=== PATIENT | male | born 1955 | race Caucasian/White ===

== ENCOUNTER → 2018-01-23 08:14 | Outpatient (CLI) | payer OTHER, MEDICAID, SELFPAY ==
[2018-01-23 09:30] LABS: Aspartate Aminotransferase 32 IU/L (17-59); Cholesterol 143 mg/dL (140-199); Glucose 101 mg/dL (80-110); HDL Cholesterol 58 mg/dL (40-60); LDL Cholesterol Calculated 71 mg/dL (<100); Triglycerides 71 mg/dL (35-150)
== END ==
PROVIDERS: PCP Internal Medicine; Visit Provider Internal Medicine
DX: E78.00 Pure hypercholesterolemia, unspecified (principal); R97.20 Elevated prostate specific antigen [PSA]
CPT/HCPCS: 36415; 80061; 82947; 84153; 84450

== ENCOUNTER → 2018-03-06 13:39 | Outpatient (CLI) | payer OTHER, MEDICAID, SELFPAY ==
--- NOTE | 2018-03-06 | DI.ECHO.S_ITS ---
[facility] +---------+ : : [address] : [place] : : : : [id number] : : : : Phone: [phone]+ Echocardiogram Report + + :Name: JASON ROMERO Study Date: 03/06/2018 Height: 71 in : :[facility] Weight: 180 lb : : Gender: Male BSA: 2.0 m2 : :: 1955 Age: 63 yrs BP: 108/66 mmHg: :Reason For Study: Murmur : : Performed By: Apple Monahan : :Referring: LEONCIO ALMODOVAR : + + Interpretation Summary The ejection fraction is estimated to be 60-65%. The ascending aorta is at the upper limits of normal in size. There is no pericardial effusion. There is no significant valvular heart disease. Procedure: A two-dimensional transthoracic echocardiogram with color flow and Doppler was performed. The study quality was technically adequate. There is no prior echocardiogram noted for this patient. The patient was in normal sinus rhythm during the exam. Left Ventricle: The left ventricle is normal in size, wall thickness, and systolic function without any focal wall motion abnormalities. The ejection fraction is estimated to be 60-65%. Diastolic parameters suggest probable normal left ventricular diastolic function and normal filling pressures. Right Ventricle: The right ventricle grossly appears normal in size with probable normal systolic function. Atria: The left atrial size is normal. Right atrial size is normal. The interatrial septum is intact with no evidence for an atrial septal defect. Mitral Valve: The mitral valve is normal in structure and function. There is no mitral regurgitation noted. Aortic Valve: The aortic valve opens well. No aortic regurgitation is present. Tricuspid Valve: The tricuspid valve is normal in structure and function. There is a trace or physiologic amount of tricuspid regurgitation. The right ventricular systolic pressure is estimated to be at least 24 mmHg based on an estimated right atrial pressure of 3 mm Hg. Pulmonic Valve: The pulmonic valve is not well seen, but is grossly normal. There is no pulmonic valvular regurgitation. Great Vessels: The aortic root is normal size. The dimensions of the ascending aorta are normal. The ascending aorta is at the upper limits of normal in size. The inferior vena cava appeared normal. Pericardium/ Pleura There is no pericardial effusion. There is no pleural effusion. MMode/2D Measurements & Calculations LVIDd: 4.7 cm Ao root diam: 3.7 cm LVIDs: 3.1 cm Aortic Jxn: 3.3 cm FS: 34.8 % asc Aorta Diam: 3.2 cm EPSS: 0.70 cm Ao Arch Diam (Prox Trans): 3.3 cm IVSd: 0.97 cm LVPWd: 0.95 cm LV suarez. diameter/BSA (cm/m^2): 2.3 LV sys. diameter/BSA (cm/m^2): 1.5 LA dimension: 3.6 cm RA long axis: 4.7 cm LA A2 area: 22.6 cm2 RA area: 15.1 cm2 LA A4 area: 17.5 cm2 RA vol: 41.5 ml LA length (vol): 5.8 cm RA : 20.6 ml/m2 LA vol: 58.0 ml IVC diam: 1.5 cm LA vol index: 28.7 ml/m2 RVDd major: 6.2 cm RVD1 (basal): 3.6 cm RVD2 (mid): 3.2 cm Doppler Measurements & Calculations Ao V2 max: 114.3 cm/sec MV E max king: 56.3 cm/sec Ao V2 mean: 71.1 cm/sec MV A max king: 34.3 cm/sec Ao max P.2 mmHg MV E/A: 1.6 Ao mean P.4 mmHg Med Peak E' King: 9.5 cm/sec Ao V2 VTI: 24.1 cm E/E' med: 5.9 Lat Peak E' King: 11.8 cm/sec E/E' lat: 4.8 E/e' average: 5.3 MV dec time: 0.28 sec MV P1/2t: 83.2 msec TR max king: 231.1 cm/sec MV P1/2t max king: 56.1 cm/sec TR max P.4 mmHg MVA(P1/2t): 2.6 cm2 PA V2 max: 71.5 cm/sec PA V2 mean: 42.8 cm/sec PA mean P.91 mmHg PA Accel Time: 0.17 sec Reading Physician:04:50 PM
== END ==
PROVIDERS: PCP Internal Medicine; Visit Provider Internal Medicine
DX: R01.1 Cardiac murmur, unspecified (principal)
CPT/HCPCS: 93306

== ENCOUNTER 2018-10-13 11:53 | Emergency (ER) | payer OTHER, MEDICAID, SELFPAY ==
[2018-10-13 12:02] VITALS: BP 149/93; PULSE 61; RESP 17; TEMP 36.6; O2SAT 99
--- NOTE | 2018-10-13 12:51 | DI.RAD.S_ITS ---
PROCEDURE: XR CHEST 2V INDICATIONS: sob, banana stuck TECHNIQUE: 2 views of the chest were acquired. COMPARISON: None. FINDINGS: Surgical changes and devices: None. Lungs and pleura: No areas of pulmonary consolidation are evident. There may be areas of scarring within the costophrenic angles. There is slight flattening of the diaphragms. No pleural effusions or pneumothorax. Mediastinum: Mediastinal contours are normal. Heart size is normal. Bones and chest wall: No suspicious bony abnormalities. Soft tissues appear unremarkable. IMPRESSION: No acute cardiopulmonary process is evident. Dictated by: Sameer Curtis M.D. on 10/13/2018 at 12:51 Approved by: Sameer Curtis M.D. on 10/13/2018 at 12:52
--- NOTE | 2018-10-13 12:53 | ED.CHESTPAIN ---
HPI - Chest Pain <JESSICA Gaston - Last Filed: 10/13/18 15:39> General Chief Complaint: Chest Pain Stated Complaint: BANANA STUCK TROUBLE BREATHING Time Seen by Provider: 10/13/18 12:44 Source: patient and family Mode of arrival: ambulatory Limitations: no limitations History of Present Illness HPI narrative: The patient is a 63-year-old male nonsmoker with history of high cholesterol who presents with a chief complaint of a banana stuck in his chest. He states he was eating wheezes a banana, felt one get stuck in his chest after he swallowed. He states he feels it moving up and down. He states this occurred immediately after swallowing a banana. He states he then he had an episode of shortness of breath, when he felt like the banana was stuck in the center of his chest. He states that he has been able to drink multiple glasses of water and manage his own secretions. He denies any fevers nausea vomiting or diarrhea. Related Data Home Medications Medication Instructions Recorded Confirmed simvastatin 20 mg PO QDAY #0 11/22/10 aspirin 81 mg PO QDAY #0 07/26/17 Allergies Allergy/AdvReac Type Severity Reaction Status Date / Time naproxen [NAPROXEN] Allergy Unknown Unverified 08/23/17 12:15 Review of Systems <JESSICA Gaston - Last Filed: 10/13/18 15:39> Review of Systems GENERAL: Denies chills, fatigue, malaise, fever, sweats. HEENT: Denies sinus pain, ear pain, sore throat, difficulty swallowing, dizziness. RESPIRATORY: See HPI CARDIOVASCULAR: Denies chest pain, palpitations, orthopnea, edema, GASTROINTESTINAL: See HPI : Denies dysuria, frequency, incontinence, hematuria, urinary retention. MUSCULOSKELETAL: denies weakness, joint pain, or bony pain SKIN: Denies rash, skin lesions, or other NEUROLOGIC: Denies weakness, headache, numbness, change in speech, confusion, seizures, incoordination. PSYCHIATRIC: No concerning psychosocial issues. 12 point review of systems is negative except for those stated above PFSH <JESSICA Gaston - Last Filed: 10/13/18 15:39> Social History Smoking Status: Never smoker Social History Smoking Status: Never smoker Exam <CHRISTOPHER Gaston - Last Filed: 10/13/18 15:39> Narrative Exam Narrative: GENERAL: This is a well-nourished, well-developed patient, in no acute distress HEAD: Atraumatic. Normocephalic. No temporal or scalp tenderness. EYES: Pupils equal round and reactive. Extraocular motions intact. No scleral icterus. No injection or drainage. ENT: Nose without bleeding, purulent drainage or septal hematoma. Throat without erythema, tonsillar hypertrophy or exudate. Uvula midline. Airway patent. NECK: Trachea midline. No JVD or lymphadenopathy. Supple, nontender, no meningeal signs. CARDIOVASCULAR: Regular rate and rhythm without murmurs, gallops, or rubs. RESPIRATORY: Clear to auscultation. Breath sounds equal bilaterally. No wheezes, rales, or rhonchi. No cough. No increased respiratory effort. No accessory muscle use. No stridor. GASTROINTESTINAL: Abdomen soft, non-tender, nondistended. No hepato-splenomegaly, or palpable masses. No guarding. Active bowel sounds all 4 quadrants. EXTREMITIES: No clubbing, cyanosis, or edema. No joint tenderness, effusion, or edema noted. BACK: Nontender without deformity or crepitance. No flank tenderness. NEURO: AOx3. Ambulating around the room using all extremities equally. SKIN: No rash or erythema. Initial Vital Signs Initial Vital Signs: Vital Signs Temperature 97.9 F 10/13/18 12:02 Pulse Rate 61 10/13/18 12:02 Respiratory Rate 17 10/13/18 12:02 Blood Pressure 149/93 H 10/13/18 12:02 Pulse Oximetry 99 10/13/18 12:02 <Angeline Velazco DO - Last Filed: 10/14/18 07:21> Initial Vital Signs Initial Vital Signs: Vital Signs Temperature 97.9 F 10/13/18 12:02 Pulse Rate 61 10/13/18 12:02 Respiratory Rate 17 10/13/18 12:02 Blood Pressure 149/93 H 10/13/18 12:02 Pulse Oximetry 99 10/13/18 12:02 Course <CHRISTOPHER Gaston - Last Filed: 10/13/18 15:39> Orders Ordered: ED Orders 10/13/18 12:51 XR chest 2V Stat Vital Signs - 8 hr 06/01/19 12:02 10/13/18 13:09 10/13/18 14:17 Temperature 97.9 F Pulse Rate 61 58 L 60 Respiratory Rate 17 17 18 Blood Pressure 149/93 H Blood Pressure [Left Arm] 120/82 127/82 Pulse Oximetry 99 98 99 <Angeline Velazco DO - Last Filed: 10/14/18 07:21> Orders Ordered: ED Orders 10/13/18 12:51 XR chest 2V Stat Vital Signs - 8 hr 10/13/18 12:02 10/13/18 13:09 10/13/18 14:17 Temperature 97.9 F Pulse Rate 61 58 L 60 Respiratory Rate 17 17 18 Blood Pressure 149/93 H Blood Pressure [Left Arm] 120/82 127/82 Pulse Oximetry 99 98 99 MDM - Chest Pain <CHRISTOPHER Gaston - Last Filed: 10/13/18 15:39> Imaging Data Chest x-ray: Radiologist's impression: [place] [address] XRay Report Signed Patient: Levi Garza [facility]#: [id number] : 6Acct:[id number] Age/Sex: 63 / MDate of Service: 10/13/18 Loc: ED Accession Number: [id number] Procedure: XR chest 2V Ordering Provider: Angeline Vigil-CHERRY PROCEDURE: XR CHEST 2V INDICATIONS: sob, banana stuck TECHNIQUE: 2 views of the chest were acquired. COMPARISON: None. FINDINGS: Surgical changes and devices: None. Lungs and pleura: No areas of pulmonary consolidation are evident. There may be areas of scarring within the costophrenic angles. There is slight flattening of the diaphragms. No pleural effusions or pneumothorax. Mediastinum: Mediastinal contours are normal. Heart size is normal. Bones and chest wall: No suspicious bony abnormalities. Soft tissues appear unremarkable. IMPRESSION: No acute cardiopulmonary process is evident. Dictated by: Sameer Curtis M.D. on 10/13/2018 at 12:51 Approved by: Sameer Curtis M.D. on 10/13/2018 at 12:52 MDM Narrative Medical decision making narrative: The patient is a 63-year-old male who presents with chief complaint of sensation of a banana in his esophagus. He is managing his secretions well. He has a normal chest x-ray. He has an overall benign exam. He is in no acute distress. He is states that during his stay in the emergency department, he felt the banana pass all the way to his stomach and feels much improved. He is insistent that this sensation is from banana, not underlying cardiac issues. He stated he wanted to go home. Given that he is hemodynamically stable am okay with this. Discussed at length coming back to emergency department for any acute concerns such as chest pain, shortness of breath. Encouraged follow-up with PCP. Patient has no questions or concerns upon discharge. Discharge Plan Departure Patient Disposition: Home Clinical Impression: Sensation of foreign body in esophagus Discharge Date/Time: 10/13/18 14:46 Interventions: ED Discharge Assessment Last Done: 10/13/18 14:46 Instructions: DI for Removal of Foreign Body From Esophagus Activity Restrictions/Additional Instructions: Your chest x-ray came back normal today. You are managing her secretions and fluids well. Your sensation has improved during your stay in the emergency department. Please come back to the emergency department if food get stuck in her throat, especially if you cannot handle your secretions or fluids. Please follow up with primary care provider. Please come back to the emergency department for any acute concerns such as chest pain, shortness of breath concern of heart attack or stroke. Prescriptions: No Action simvastatin 20 MG tablet 20 mg PO QDAY Qty: 0 RF: 0 aspirin 81 MG tablet,delayed release (DR/EC) 81 mg PO QDAY Qty: 0 RF: 0 Referrals: Sushant Foley MD [Primary Care Provider] - <Angeline Velazco DO - Last Filed: 10/14/18 07:21> Cosign ED Attending Cosluisitoature Attestation: I was immediately available in the department for consultation. This documentation has been reviewed and I agree with assessment and plan. Supervised by Angeline Velazco DO
[2018-10-13 13:09] VITALS: BP 120/82; PULSE 58; RESP 17; O2SAT 98
[2018-10-13 14:17] VITALS: BP 127/82; PULSE 60; RESP 18; O2SAT 99
--- NOTE | 2018-10-13 14:45 | PC.NURSE ---
pt states feels like esophagus is tightening
== END 2018-10-13 14:46 | disposition home or self-care (01) ==
PROVIDERS: Emergency Provider Nurse Practitioner Family; PCP Internal Medicine
DX: K22.8 Other specified diseases of esophagus (principal)
CPT/HCPCS: 71046; 99283

== ENCOUNTER → 2019-02-28 08:18 | Outpatient (CLI) | payer OTHER, MEDICAID, SELFPAY ==
[2019-02-28 09:14] LABS: Aspartate Aminotransferase 30 IU/L (17-59); Cholesterol 132 mg/dL (140-199); Glucose 96 mg/dL (80-110); HDL Cholesterol 56 mg/dL (40-60); LDL Cholesterol Calculated 66 mg/dL (<100); Triglycerides 51 mg/dL (35-150)
[2019-02-28 15:18] LABS: Prostate Specific Antigen 2.63 ng/mL (0.10-4.00)
== END ==
PROVIDERS: PCP Internal Medicine; Visit Provider Internal Medicine
DX: E78.00 Pure hypercholesterolemia, unspecified (principal); R97.20 Elevated prostate specific antigen [PSA]
CPT/HCPCS: 36415; 80061; 82947; 84153; 84450

== ENCOUNTER → 2020-02-12 07:12 | Outpatient (CLI) | payer OTHER, MEDICAID, SELFPAY ==
[2020-02-12 10:08] LABS: HEMOLYSIS < 15 (0-50)
[2020-02-12 10:13] LABS: BUN Creatinine Ratio 20.6 (6-22); Blood Urea Nitrogen 20 mg/dL (9-20); Carbon Dioxide 31 mmol/L (22-32); Chloride 103 mmol/L (98-107); Cholesterol 201 mg/dL (140-199); Estimated Glomerular Filt Rate > 60.0 mL/min (>60); Glucose 90 mg/dL (80-110); HDL Cholesterol 66 mg/dL (40-60); LDL Cholesterol Calculated 116 mg/dL (<100); Potassium 4.4 mmol/L (3.4-5.1); Sodium 139 mmol/L (137-145); Triglycerides 93 mg/dL (35-150)
[2020-02-13 16:13] LABS: Prostate Specific Antigen Scrn 2.91 ng/mL (0.1-4.0)
== END ==
PROVIDERS: PCP Student in an Organized Health Care Education/Training Program; Referring Provider Student in an Organized Health Care Education/Training Program; Visit Provider Student in an Organized Health Care Education/Training Program
DX: E78.2 Mixed hyperlipidemia (principal); Z12.5 Encounter for screening for malignant neoplasm of prostate; R42 Dizziness and giddiness; Z83.3 Family history of diabetes mellitus
CPT/HCPCS: 36415; 80048; 80061; G0103

== ENCOUNTER → 2020-08-05 06:55 | Outpatient (CLI) | payer OTHER, MEDICAID, SELFPAY ==
[2020-08-05 08:22] LABS: Cholesterol 151 mg/dL (140-199); HDL Cholesterol 63 mg/dL (40-60); LDL Cholesterol Calculated 74 mg/dL (<100); Triglycerides 72 mg/dL (35-150)
== END ==
PROVIDERS: PCP Student in an Organized Health Care Education/Training Program; Referring Provider Student in an Organized Health Care Education/Training Program; Visit Provider Student in an Organized Health Care Education/Training Program
DX: E78.2 Mixed hyperlipidemia (principal)
CPT/HCPCS: 36415; 80061

== ENCOUNTER → 2020-11-04 10:44 | Outpatient (ROUT) | payer OTHER, MEDICAID, SELFPAY ==
[2020-11-04 11:14] LABS: COVID19 -Nasal RAPID Negative (Negative)
== END ==
PROVIDERS: PCP Student in an Organized Health Care Education/Training Program; Visit Provider Surgery
DX: Z20.822 Contact with and (suspected) exposure to COVID-19
CPT/HCPCS: 87635; C9803

== ENCOUNTER 2020-11-05 07:28 | Day surgery (SDC) | payer OTHER, MEDICAID, SELFPAY ==
[2020-11-05] VITALS (8 sets, daily range): BP systolic 103–126; BP diastolic 68–80; PULSE 62–84; RESP 9–14; TEMP 36.1–36.7; O2SAT 94–100; BMI 23.7
[2020-11-05] MEDS: SODIUM CHLORIDE 0.9% 1,000 ML 200 ML IV (07:50)
--- NOTE | 2020-11-05 08:31 | PM.HP.1 ---
History of Present Illness History of Present Illness Date Patient Seen: 11/05/20 Time Patient Seen: 08:31 Chief complaint: SDC Narrative: This is a 65-year-old man with history of polyps found 3 years ago on colonoscopy, with recommendation to have a repeat colonoscopy in 3 years. He denies any new symptoms of melena, hematochezia, unexplained abdominal pain, or unexplained weight loss. He denies any known family history of advanced colon polyps or colon cancers. ROS: Thirteen system review is otherwise negative other than as mentioned below and in HPI. PE GENERAL: Well groomed and cooperative. Appears stated age. Answers questions promptly and appropriately. Vital signs noted. HENT: Normocephalic, atraumatic. Hearing intact. EYES: Conjunctiva pink, sclera white, no periorbital swelling. CARDIOVASCULAR: Regular rate. No pedal edema. RESPIRATORY: Non-tachypneic, breathing comfortably on room air. GASTROINTESTINAL: Abdomen soft and non-distended GENITALURINARY: No flank tenderness. MUSCULOSKELETAL: Equal tone and mass bilaterally. SKIN: Warm, dry, soft, appropriate color for ethnicity. No other lesions, rashes, or wounds. NEURO: Alert and Oriented X 3. No gross sensory deficits, or cognitive issues. PSYCH: Appropriate affect and mood. Patient History Medical History Allergies (~1969) Surgical History Anesthesia History of hernia repair History of hip surgery (~2008) Family & Social History Family History Father History of heart disease Hyperlipidemia Hypertension Mother Diabetes mellitus History of heart disease Hyperlipidemia Hypertension Grandfather Diabetes mellitus History of heart disease Hyperlipidemia Hypertension Grandmother History of heart disease Hyperlipidemia Hypertension Diabetes mellitus Grandfather Diabetes mellitus History of heart disease Hyperlipidemia Hypertension Grandmother History of heart disease Diabetes mellitus Hyperlipidemia Hypertension Social History: household members spouse Tobacco & Substance use: Smoking Status Never smoker alcohol intake current alcohol intake frequency 0-2 drinks per day Substance Use Type does not use Meds Home Medications and Allergies Home Medications Medication Instructions Recorded Confirmed Type aspirin 81 mg PO QDAY #0 07/26/17 11/05/20 History simvastatin 20 mg tablet 20 mg PO QDAY #90 tab 05/16/20 11/05/20 Rx Allergies Allergy/AdvReac Type Severity Reaction Status Date / Time naproxen [NAPROXEN] Allergy Severe Anaphylaxis Verified 11/05/20 07:41 Exam Vital Signs (past 8 hours): - 11/05/20 07:51 Temperature 97.4 F L Pulse Rate 67 Respiratory Rate 14 Blood Pressure 122/78 Pulse Oximetry 100 Oxygen Delivery Method Room Air Assessment & Plan Assessment and plan (1) Personal history of colonic polyps: Status: Acute Assessment & Plan narrative: Risks and benefits of screening colonoscopy and possible polypectomy were discussed with the patient including risk of bleeding, perforation, need for additional procedures, risks of anesthesia. The patient desires to proceed with the colonoscopy procedure. COVID-19 COVID-19 status: Negative Result date/Date tested (Pos, Neg/Pending): 11/04/20 Time Spent With Patient Time with patient: 15-24 minutes Quality VTE Deep Vein Thrombosis/Pulmonary Embolism Present on Admission: No
[2020-11-05] MEDS: fentaNYL 250 MCG/5 ML INJ IV (08:41)
--- NOTE | 2020-11-05 08:41 | P.OP.ENDO_ITS ---
Operative Date/Time/Diagnoses Date of procedure: 11/05/20 Time of procedure: 08:41 Pre-op diagnosis: Personal history colon polyps Post-op diagnosis: other (Moderate to severe diverticulosis, no polyps seen on today's exam) Procedure & Clinicians Study performed: Colonoscopy Procedural sedation performed by the endoscopist Same procedure as scheduled: Yes Indications: Personal history colon polyps, here for surveillance Surgeon: Lola Blue Procedure Notes SCOAP/Timeout: Performed Procedure in detail: The patient was brought to the room and placed in left lateral decubitus position with all bony prominences padded. A time-out was performed and then the patient was given procedural sedation starting with 4 mg of Versed and 100 mcg of fentanyl. An additional 1 mg of Versed was given during the procedure. Vitals were monitored throughout the procedure and remained stable. Once adequately sedated, the procedure was begun. A rectal exam was performed revealing no abnormalities. The colonoscope was then int roduced to the rectum and advanced to the cecum in the usual fashion. The cecum was identified by the appendiceal orifice, the mucosal tri-fold, and the ileocecal valve. I looked carefully throughout the cecum for any regrowth of the polyp which was removed by Dr. Potter 3 years ago. No abnormalities were seen in the cecum. The scope was then retracted while rotating side to side and examining each mucosal fold. Moderate diverticulosis was seen throughout the colon, most significant in the descending and sigmoid colon. No active diverticulitis was seen. No polyps were seen on today's exam. At the conclusion of the procedure retroflexion was performed and small grade 1-2 internal hemorrhoids without stigmata of bleeding were seen. The scope was then withdrawn from the rectum the procedure was concluded. The patient tolerated the procedure well and was transferred to the PACU in stable condition. Scope withdrawal time: 8 Sedation minutes: 15 Findings: diverticulosis Specimen(s): none sent Complications: none Impression: Moderate to severe diverticulosis, no polyps on today's exam Post-procedure Recommendations: Colonscopy in 5 years and High fiber diet (Fiber supplement such as Metamucil) Follow up: as needed Disposition: PACU
[2020-11-05] MEDS: MIDAZOLAM 5 MG/5 ML VIAL IV (08:47)
== END 2020-11-05 09:45 | disposition home or self-care (01) ==
PROVIDERS: PCP Student in an Organized Health Care Education/Training Program; Referring Provider Surgery; Visit Provider Surgery
PROC: 0DJD8ZZ Inspection of Lower Intestinal Tract, Via Natural or Artificial Opening Endoscopic (ICD-10-PCS; CPT 45378; principal; 2020-11-05 08:30)
DX: Z12.11 Encounter for screening for malignant neoplasm of colon (principal); Z86.010 Personal history of colon polyps; K57.30 Diverticulosis of large intestine without perforation or abscess without bleeding; K64.0 First degree hemorrhoids
CPT/HCPCS: 45378; 99152; J2250; J3010

== ENCOUNTER → 2021-05-20 11:30 | Outpatient (CLI) | payer MEDICARE, OTHER, MEDICAID, SELFPAY ==
[2021-05-20 13:57] LABS: Prostate Specific Antigen Scrn 4.45 ng/mL (0.1-4.0)
== END ==
PROVIDERS: PCP Student in an Organized Health Care Education/Training Program; Referring Provider Student in an Organized Health Care Education/Training Program; Visit Provider Student in an Organized Health Care Education/Training Program
DX: Z12.5 Encounter for screening for malignant neoplasm of prostate (principal)
CPT/HCPCS: 36415; G0103

== ENCOUNTER → 2021-07-27 09:44 | Outpatient (CLI) | payer MEDICARE, OTHER, MEDICAID, SELFPAY ==
[2021-07-28 10:51] LABS: PSA Free % 13.3 % (.); PSA, Total 3.6 ng/mL (0.0-4.0)
== END ==
PROVIDERS: PCP Student in an Organized Health Care Education/Training Program; Referring Provider Student in an Organized Health Care Education/Training Program; Visit Provider Student in an Organized Health Care Education/Training Program
DX: R97.20 Elevated prostate specific antigen [PSA] (principal)
CPT/HCPCS: 36415; 84153; 84154

== ENCOUNTER → 2021-12-22 11:13 | Outpatient (CLI) | payer MEDICARE, OTHER, MEDICAID, SELFPAY ==
[2021-12-22 13:32] LABS: Prostate Specific Antigen 0.831 ng/mL (0.10-4.00)
== END ==
PROVIDERS: Radiology Radiation Oncology; PCP Student in an Organized Health Care Education/Training Program
DX: C61 Malignant neoplasm of prostate (principal)
CPT/HCPCS: 36415; 84153

== ENCOUNTER → 2022-03-31 07:17 | Outpatient (CLI) | payer MEDICARE, OTHER, MEDICAID, SELFPAY ==
[2022-03-31 10:23] LABS: Prostate Specific Antigen 0.575 ng/mL (0.10-4.00)
== END ==
PROVIDERS: PCP Student in an Organized Health Care Education/Training Program; Referring Provider Radiology Radiation Oncology; Visit Provider Radiology Radiation Oncology
DX: C61 Malignant neoplasm of prostate (principal)
CPT/HCPCS: 36415; 84153

== ENCOUNTER → 2022-10-19 07:07 | Outpatient (CLI) | payer MEDICARE, OTHER, SELFPAY ==
[2022-10-19 08:42] LABS: Cholesterol 152 mg/dL (140-199); HDL Cholesterol 54 mg/dL (40-60); LDL Cholesterol Calculated 86 mg/dL (<100); Triglycerides 58 mg/dL (35-150)
[2022-10-19 09:16] LABS: Prostate Specific Antigen 0.264 ng/mL (0.10-4.00)
[2022-10-20 16:29] LABS: Hep C Virus Ab w/Reflex Quant NEGATIVE s/c (NEGATIVE)
== END ==
PROVIDERS: PCP Student in an Organized Health Care Education/Training Program; Referring Provider Radiology Radiation Oncology; Visit Provider Radiology Radiation Oncology
DX: E78.5 Hyperlipidemia, unspecified (principal); C61 Malignant neoplasm of prostate; Z11.59 Encounter for screening for other viral diseases
CPT/HCPCS: 36415; 80061; 84153; 86803

== ENCOUNTER → 2023-05-03 09:50 | Outpatient (CLI) | payer MEDICARE, OTHER, SELFPAY ==
[2023-05-03 12:54] LABS: Cholesterol 160 mg/dL (140-199); HDL Cholesterol 58 mg/dL (40-60); LDL Cholesterol Calculated 88 mg/dL (<100); Triglycerides 71 mg/dL (35-150)
[2023-05-06 11:17] LABS: PSA, Total 0.1 ng/mL (0.0-4.0)
== END ==
PROVIDERS: PCP Family Medicine; Referring Provider Family Medicine; Visit Provider Family Medicine
DX: C61 Malignant neoplasm of prostate (principal); E78.5 Hyperlipidemia, unspecified
CPT/HCPCS: 36415; 80061; 84153; 84154

== ENCOUNTER → 2023-05-12 07:38 | Outpatient (CLI) | payer MEDICARE, OTHER, SELFPAY ==
[2023-05-12 08:31] LABS: Hematocrit 37.5 % (41-53); Hemoglobin 12.8 g/dL (13.5-17.5); Mean Corpuscular HGB Conc 34.1 % (30-36); Mean Corpuscular Hemoglobin 34.4 PG (26-34); Mean Corpuscular Volume 100.8 fL (80-100); Platelet Count 216 X10^3/uL (150-400); Red Blood Cell Count 3.72 X10^6/uL (4.5-5.9); White Blood Cell Count 9.3 X10^3/uL (4.5-11.0)
[2023-05-12 08:32] LABS: Add Manual Diff / Slide Review YES
[2023-05-12 08:55] LABS: Alanine Aminotransferase 25 IU/L (<50); Albumin 4.2 g/dL (3.5-5.0); Albumin Globulin Ratio 1.4 (1.0-2.8); Alkaline Phosphatase 51 U/L (38-126); Aspartate Aminotransferase 32 IU/L (17-59); BUN Creatinine Ratio 20.4 (6-22); Bilirubin Total 0.5 mg/dL (0.2-1.3); Blood Urea Nitrogen 20 mg/dL (9-20); Calcium 9.6 mg/dL (8.4-10.2); Carbon Dioxide 30 mmol/L (22-32); Chloride 104 mmol/L (98-107); Estimated Glomerular Filt Rate > 60 mL/min (>60); Globulin 3.1 g/dL (1.7-4.1); Glucose 104 mg/dL (80-110); HEMOLYSIS < 15 (0-50); Sodium 139 mmol/L (137-145); Total Protein 7.3 g/dL (6.3-8.2)
[2023-05-12 09:24] LABS: TSH w/ Reflex to FT4 1.96 uIU/mL (0.47-4.68)
[2023-05-12 09:39] LABS: Vitamin B12 322 pg/mL (239-931)
[2023-05-12 09:47] LABS: Neutrophils Absolute Manual 1209 /uL (3000-5900); Total Cells Counted 100
[2023-05-12 09:48] LABS: RBC Morphology Normal Morphology
[2023-05-12 09:50] LABS: Smudge Cells 2+
== END ==
PROVIDERS: PCP Family Medicine; Referring Provider Pediatrics; Visit Provider Pediatrics
DX: R41.3 Other amnesia (principal); C61 Malignant neoplasm of prostate; E78.5 Hyperlipidemia, unspecified
CPT/HCPCS: 36415; 80053; 82607; 84443; 85007; 85025

== ENCOUNTER → 2025-01-22 18:28 | Outpatient (CLI) | payer MEDICARE, OTHER, SELFPAY ==
[2025-01-22 19:31] LABS: Influenza A - CEPHEID Flu A NEGATIVE (NEGATIVE); Influenza B - CEPHEID Flu B NEGATIVE (NEGATIVE)
[2025-01-22 19:36] LABS: COVID-19 CEPHEID 4-PLEX PCR POSITIVE (Negative)
== END ==
PROVIDERS: PCP Family Medicine; Visit Provider Chiropractor
DX: R50.9 Fever, unspecified (principal)
CPT/HCPCS: 87637